=== PATIENT | male | born 1945 | race Caucasian/White ===

== ENCOUNTER 2022-02-07 07:50 | Observation (INO) | payer OTHER ==
[2022-02-05 12:16] LABS: BASOPHILS % (AUTO) 0.7 % (0.0-5.0); HEMATOCRIT 43.4 % (42-54); LYMPHOCYTES % (AUTO) 17.1 % (21.0-51.0); MEAN CORPUSCULAR HEMOGLOBIN 28.8 pg (27.0-33.0); MONOCYTES % (AUTO) 9.6 % (3.0-13.0); NEUTROPHILS % (AUTO) 68.6 % (40.0-77.0); PLATELET COUNT (AUTO) 193 K/uL (130-400); RED BLOOD CELL COUNT(AUTO) 4.82 MIL/uL (4.50-6.20); RED CELL DISTRIBUTION WIDTH 14.5 % (11.0-15.5); WHITE BLOOD COUNT (AUTO) 7.3 K/uL (4.8-10.8)
[2022-02-05 12:23] LABS: APPEARANCE,URINE Clear (CLEAR); BILIRUBIN,URINE Negative (NEGATIVE); COLOR,URINE Yellow (YELLOW); GLUCOSE, URINE (UA) Negative (NEGATIVE); KETONES,URINE Negative (NEGATIVE); LEUKOCYTE ESTERASE ,URINE Negative (NEGATIVE); NITRATE,URINE Negative (NEGATIVE); OCCULT BLOOD,URINE Negative (NEGATIVE); PROTEIN,URINE Negative (NEGATIVE); UROBILINOGEN,URINE 0.2 mg/dL (0.2-1.0)
[2022-02-05 12:27] LABS: CREATININE 1.2 mg/dL (0.5-1.5); POTASSIUM 4.4 mmol/L (3.5-5.1)
[2022-02-05 12:28] LABS: INR 1.21 (0.85-1.15)
[2022-02-05 12:30] LABS: PARTIAL THROMBOPLASTIN TIME 34.7 SEC (26.3-35.5)
[2022-02-06 12:39] VITALS: BP 129/74
[2022-02-07] VITALS (9 sets, daily range): BP systolic 122–166; BP diastolic 73–93
[~2022-02-07] VITALS: Ht 185.4 cm; Wt 128.5 kg
[~2022-02-07 07:50] MED LIST: ALBU0.63 IH; AMIO200T68 PO; ATOR40TA71 PO; BUSP15TA3 PO; CARB1DRO39 OP; CARV25TA PO; FLUT1BLS3 IH; LEVO25CA4 PO; METF-444 PO; PRAZ2CAP2 PO; RIVA15TA PO; SERT200C PO; TAMS-1 PO
[2022-02-07] MEDS ORDERED: 0.9%NACL 1000ML 1,000 ML IV ONE (08:33)
[2022-02-07] MEDS ORDERED: LIDOCAINE HCL 1% 20 ML VIAL ONE (12:56)
[2022-02-07] MEDS ORDERED: IOHEXOL-350 50ML VIAL IV ONE (12:56)
[2022-02-07] MEDS ORDERED: IOHEXOL 350 MG/ML 100ML INFUS..BTL IV ONE (12:56)
[2022-02-07] MEDS ORDERED: SODIUM BICARB 50MEQ 50ML VIAL 50 ML ONE (12:56)
[2022-02-07] MEDS ORDERED: NITROGLYCERIN 50MG VIAL ONE (13:06)
[2022-02-07] MEDS ORDERED: MIDAZOLAM HCL 1 MG/ML 2ML VIAL ONE ×4 (13:18→14:21)
[2022-02-07] MEDS ORDERED: MEPERIDINE-PF 25 MG/ML SYG ONE ×4 (13:18→14:21)
[2022-02-07] MEDS ORDERED: HEPARIN 10,000 UNIT/10ML (1,000 UNIT/ML) VIAL ONE (13:19)
[2022-02-07] MEDS ORDERED: DEXTROSE 50%-WATER 50 ML DISP.SYRIN IV PRN (15:00)
[2022-02-07] MEDS ORDERED: ALBUTEROL 0.042% 1.25MG/3ML IH PRN (15:00)
[2022-02-07] MEDS: INSULIN HUMULIN R 100 UNIT/ML 3ML SQ SCH ×2 (16:30→21:00)
[2022-02-07] MEDS: ARTIFICAL TEARS SOL 15 ML OP SCH ×2 (17:00→21:00)
[2022-02-07] MEDS: 0.9%NACL 1000ML 1,000 ML IV SCH (18:06)
[2022-02-07] MEDS ORDERED: PRAZOSIN HCL 2 MG PO SCH (21:00)
[2022-02-07] MEDS ORDERED: AMIODARONE 200 MG TABLET PO SCH (21:00)
[2022-02-07] MEDS: BUSPIRONE HCL 5 MG TABLET PO SCH (21:10)
[2022-02-07] MEDS: ALPRAZOLAM 0.5 MG TABLET PO SCH (21:11)
[2022-02-07] MEDS: CARVEDILOL 25 MG TABLET PO SCH (21:12)
[2022-02-08 03:31] VITALS: BP 137/80
[2022-02-08] MEDS: 0.9%NACL 1000ML 1,000 ML IV SCH (03:49)
[2022-02-08 03:58] LABS: BASOPHILS % (AUTO) 0.5 % (0.0-5.0); EOSINOPHILS % (AUTO) 2.5 % (0.0-8.0); HEMATOCRIT 38.7 % (42-54); LYMPHOCYTES % (AUTO) 17.5 % (21.0-51.0); MEAN CORPUSCULAR HGB CONC 31.5 g/dL (32.0-36.0); MONOCYTES % (AUTO) 11.6 % (3.0-13.0); PLATELET COUNT (AUTO) 177 K/uL (130-400); RED BLOOD CELL COUNT(AUTO) 4.35 MIL/uL (4.50-6.20); RED CELL DISTRIBUTION WIDTH 14.5 % (11.0-15.5); WHITE BLOOD COUNT (AUTO) 8.1 K/uL (4.8-10.8)
[2022-02-08 04:17] LABS: ALBUMIN 3.3 g/dL (3.5-5.0); BILIRUBIN,TOTAL 0.4 mg/dL (0.2-1.0); CREATININE 1.2 mg/dL (0.5-1.5); MAGNESIUM 1.9 mg/dL (1.80-2.40); POTASSIUM 4.3 mmol/L (3.5-5.1); TOTAL PROTEIN, SERUM 6.4 g/dL (6.0-8.3)
[2022-02-08] MEDS ORDERED: LEVOTHYROXINE 25 MCG TABLET PO SCH (06:30)
[2022-02-08] MEDS: INSULIN HUMULIN R 100 UNIT/ML 3ML SQ SCH ×2 (07:00→11:30)
[2022-02-08 08:42] VITALS: BP 138/86
[2022-02-08] MEDS ORDERED: **HM**(Fluticasone/Umeclidin/Vilanter (Trelegy Ellipta 100-62.5- IH SCH (09:00)
[2022-02-08] MEDS ORDERED: TAMSULOSIN HCL 0.4 MG CAP.ER.24H PO SCH (09:00)
[2022-02-08] MEDS ORDERED: ATORVASTATIN 40 MG TABLET PO SCH (09:00)
[2022-02-08] MEDS ORDERED: SERTRALINE HCL 50 MG TABLET PO SCH (09:00)
[2022-02-08] MEDS: ARTIFICAL TEARS SOL 15 ML OP SCH ×2 (09:00→12:22)
[2022-02-08] MEDS: BUSPIRONE HCL 5 MG TABLET PO SCH (09:22)
[2022-02-08] MEDS: CARVEDILOL 25 MG TABLET PO SCH (09:22)
[2022-02-08] MEDS: ALPRAZOLAM 0.5 MG TABLET PO SCH (09:26)
[2022-02-08] MEDS ORDERED: METO25TA6 PO (10:03)
[2022-02-08 11:30] VITALS: BP 133/76
== END 2022-02-08 13:15 | disposition home or self-care (01) ==
LOC: DAH 07:50 → DAHIP 07:51 → DAH 07:51 → 2DH 15:21
PROVIDERS: ADMIT Internal Medicine; ATTEND Internal Medicine
DX: I35.0 Nonrheumatic aortic (valve) stenosis (principal); J44.9 Chronic obstructive pulmonary disease, unspecified; E66.9 Obesity, unspecified; I10 Essential (primary) hypertension; E11.9 Type 2 diabetes mellitus without complications; E78.5 Hyperlipidemia, unspecified; I48.0 Paroxysmal atrial fibrillation; G47.33 Obstructive sleep apnea (adult) (pediatric); N40.0 Benign prostatic hyperplasia without lower urinary tract symptoms; Z79.01 Long term (current) use of anticoagulants; Z68.37 Body mass index [BMI] 37.0-37.9, adult; Z95.0 Presence of cardiac pacemaker; Z79.899 Other long term (current) drug therapy
CPT/HCPCS: 36415 ×2; 71045; 80048; 80053; 81003; 82948 ×3; 83735; 85025 ×2; 85610; 85730; 93005; 93460; 94660 ×2; 96360; 96361 ×3; A4215; A4216; A4221; A4222; A4223 ×3; A4606; A4663; C1760 ×2; C1769 ×3; C1893; C1894 ×3; G0378 ×22; J1644; J2175 ×4; J2250 ×4; J3490 ×2; J7030; Q9965; Q9967 ×2; 99156; 99157

== ENCOUNTER → 2023-01-12 | Outpatient (CLI) | payer OTHER ==
[~2023-01-12] MED LIST changes: +ACET-2079 PO; -CARV25TA PO; +LIDOP TD; +METO25TA6 PO
== END | disposition home or self-care (01) ==
LOC: SHCH 08:57
PROVIDERS: ATTEND Internal Medicine Cardiovascular Disease
DX: I51.7 Cardiomegaly (principal); I48.0 Paroxysmal atrial fibrillation
CPT/HCPCS: 93306

== ENCOUNTER → 2023-11-12 | Outpatient (CLI) | payer OTHER | END | disposition home or self-care (01) | LOC: SHCH 08:56 | PROVIDERS: ATTEND Internal Medicine Cardiovascular Disease | DX: I35.0 Nonrheumatic aortic (valve) stenosis (principal); I51.7 Cardiomegaly; Z95.0 Presence of cardiac pacemaker | CPT/HCPCS: 93306 ==

== ENCOUNTER 2024-01-08 08:06 | Day surgery (SDC) | payer OTHER ==
[2024-01-06 11:01] VITALS: BP 135/74; PULSE 65; RESP 18
[2024-01-06 11:01] LABS: BASOPHILS # (AUTO) 0.05 K/uL (0.00-0.20); BASOPHILS % (AUTO) 0.6 % (0.0-5.0); EOSINOPHILS # (AUTO) 0.39 K/uL (0.00-0.70); EOSINOPHILS % (AUTO) 4.6 % (0.0-8.0); HEMATOCRIT 44.4 % (42-54); IMMATURE GRANULOCYTE ABSOLUTE 0.03 K/uL (0-1); LYMPHOCYTES # (AUTO) 1.4 K/uL (1.0-4.8); LYMPHOCYTES % (AUTO) 16.6 % (21.0-51.0); MEAN CORPUSCULAR HEMOGLOBIN 28.7 pg (27.0-33.0); MEAN CORPUSCULAR HGB CONC 32.2 g/dL (32.0-36.0); MONOCYTES # (AUTO) 0.8 K/uL (0.1-1.0); MONOCYTES % (AUTO) 9.9 % (3.0-13.0); NEUTROPHILS # (AUTO) 5.7 K/uL (1.8-7.7); NEUTROPHILS % (AUTO) 67.9 % (40.0-77.0); PLATELET COUNT (AUTO) 231 K/uL (130-400); RED BLOOD CELL COUNT(AUTO) 4.99 MIL/uL (4.50-6.20); RED CELL DISTRIBUTION WIDTH 14.6 % (11.0-15.5); WHITE BLOOD COUNT (AUTO) 8.5 K/uL (4.8-10.8)
[2024-01-06 11:11] LABS: CREATININE 1.4 mg/dL (0.5-1.5); POTASSIUM 4.4 mmol/L (3.5-5.1)
[2024-01-06 11:31] LABS: B-TYPE NATRIURETIC PEPTIDE 18 pg/mL (0-100)
[2024-01-06 11:38] LABS: APPEARANCE,URINE CLEAR (CLEAR); BILIRUBIN,URINE NEGATIVE (NEGATIVE); COLOR,URINE YELLOW (YELLOW); GLUCOSE, URINE (UA) NEGATIVE (NEGATIVE); KETONES,URINE NEGATIVE (NEGATIVE); LEUKOCYTE ESTERASE ,URINE NEGATIVE Leu/uL (NEGATIVE); NITRATE,URINE NEGATIVE (NEGATIVE); OCCULT BLOOD,URINE NEGATIVE (NEGATIVE); PH,URINE 5.5 (5.0-8.0); PROTEIN,URINE NEGATIVE (NEGATIVE); UROBILINOGEN,URINE 0.2 mg/dL (0.2-1.0)
[2024-01-06 11:44] LABS: INR 1.03 (0.85-1.15); PROTHROMBIN TIME 11.9 SEC (9.6-11.6)
[2024-01-06 11:45] LABS: ADD UA MICROSCOPIC NO
[2024-01-06 11:46] LABS: PARTIAL THROMBOPLASTIN TIME 33.3 SEC (26.3-35.5)
[2024-01-08] VITALS (11 sets, daily range): BP systolic 125–181; BP diastolic 70–88; PULSE 60–77; RESP 14–20
[~2024-01-08] VITALS: Ht 185.4 cm; Wt 121.7 kg
[~2024-01-08 08:06] MED LIST changes: -ACET-2079 PO; +ATOR-2 PO; -ATOR40TA71 PO; +BUSP10TA3 PO; -BUSP15TA3 PO; +FLUO5DRO OU; -LIDOP TD; +LORA0.5T83 PO; +MELA3TAB41 PO; -METF-444 PO; +METF750T46 PO; +NYSTATIN PO; +PRAZ1CAP5 PO; -PRAZ2CAP2 PO; +SEMA1PEN3 SQ; +SERT150C PO; -SERT200C PO; +SODI15DR8 OU
[2024-01-08] MEDS: 0.9%NACL 1000ML 1,000 ML IV ONE (09:42)
[2024-01-08] MEDS ORDERED: MEPERIDINE-PF 25 MG/ML SYG ONE (12:01)
[2024-01-08] MEDS ORDERED: LIDOCAINE HCL 400MG/20ML VIAL ONE ×2 (12:01→13:05)
[2024-01-08] MEDS ORDERED: MIDAZOLAM HCL 1 MG/ML 2ML VIAL ONE (12:02)
[2024-01-08] MEDS ORDERED: IOHEXOL-350 75 ML VIAL IV ONE (12:02)
[2024-01-08] MEDS ORDERED: IOHEXOL-350 50ML VIAL IV ONE (12:02)
[2024-01-08] MEDS ORDERED: HEPARIN 10,000 UNIT/10ML (1,000 UNIT/ML) VIAL ONE (12:17)
[2024-01-08] MEDS ORDERED: NITROGLYCERIN 50MG VIAL ONE (12:52)
[2024-01-08] MEDS ORDERED: 0.9%NACL 10ML VIAL IVP SCH (14:30)
[2024-01-08] MEDS ORDERED: DEXTROSE 50%-WATER 50 ML DISP.SYRIN IV PRN (14:30)
[2024-01-08] MEDS ORDERED: ACETAMINOPHEN 325 MG TAB ONE (14:59)
[2024-01-08] MEDS: ACETAMINOPHEN 325 MG TAB PO PRN (15:15)
[2024-01-08] MEDS ORDERED: INSULIN HUMULIN R 100 UNIT/ML 3ML SQ SCH (16:30)
== END 2024-01-08 20:30 | disposition home or self-care (01) ==
LOC: DAH 08:06
PROVIDERS: ATTEND Internal Medicine Cardiovascular Disease
DX: I35.0 Nonrheumatic aortic (valve) stenosis (principal); I25.119 Atherosclerotic heart disease of native coronary artery with unspecified angina pectoris; I50.32 Chronic diastolic (congestive) heart failure; I48.0 Paroxysmal atrial fibrillation; G47.33 Obstructive sleep apnea (adult) (pediatric); E66.9 Obesity, unspecified; E11.22 Type 2 diabetes mellitus with diabetic chronic kidney disease; I13.0 Hypertensive heart and chronic kidney disease with heart failure and stage 1 through stage 4 chronic kidney disease, or unspecified chronic kidney disease; N18.30 Chronic kidney disease, stage 3 unspecified; E11.40 Type 2 diabetes mellitus with diabetic neuropathy, unspecified; J44.9 Chronic obstructive pulmonary disease, unspecified; Z79.899 Other long term (current) drug therapy; Z98.890 Other specified postprocedural states; Z79.01 Long term (current) use of anticoagulants; Z82.49 Family history of ischemic heart disease and other diseases of the circulatory system; Z90.89 Acquired absence of other organs; Z83.3 Family history of diabetes mellitus; Z80.42 Family history of malignant neoplasm of prostate; Z82.0 Family history of epilepsy and other diseases of the nervous system; Z83.42 Family history of familial hypercholesterolemia; Z68.37 Body mass index [BMI] 37.0-37.9, adult
CPT/HCPCS: 80048; 83880; 85025; 85610; 85730; 81003; 36415; 93005; 93460; 82948; C1769 ×3; C1894 ×3; C1760; C1893; J3490 ×2; J7030; J2250; J2175; J1644; Q9967; A4215; A4222; A4221; A4663; A4216; A4606; A4223 ×3

== ENCOUNTER → 2024-08-17 | Outpatient (CLI) | payer OTHER | END | disposition home or self-care (01) | LOC: SHCH 08:47 | PROVIDERS: ATTEND Internal Medicine Cardiovascular Disease | DX: I08.0 Rheumatic disorders of both mitral and aortic valves (principal); I11.9 Hypertensive heart disease without heart failure; I48.0 Paroxysmal atrial fibrillation; E78.5 Hyperlipidemia, unspecified; E11.9 Type 2 diabetes mellitus without complications; Z95.0 Presence of cardiac pacemaker | CPT/HCPCS: 93306; 93356 ==